=== PATIENT | female | born 1960 | race American Indian/Alaskan Native ===

== ENCOUNTER 2019-05-24 09:54 | Outpatient (CLI) | payer MEDICARE, BC ==
[2019-05-24 11:22] LABS: Blood Urea Nitrogen 8 mg/dL (7-17)
--- NOTE | 2019-05-24 12:51 | Cat Scan Report ---
CT CHEST WITHOUT CONTRAST INDICATION / CLINICAL INFORMATION: R07.89 STERNALPAIN SLIGHT LEFT OF MIDLINE. TECHNIQUE: Axial CT images were obtained through the chest without contrast. Sagittal and coronal reformatted im ages. All CT scans at this location are performed using CT dose reduction for ALARA by means of autom ated exposure control. COMPARISON: None available. FINDINGS: HEART: No significant abnormality. THORACIC AORTA: No significant abnormality. MEDIASTINUM and YAMILETH: No significant abnormality. LUNGS: No acute air space or interstitial disease. PLEURA: No significant pleural effusion. No pneumothorax. SKELETAL SYSTEM: No significant abnormality. UPPER ABDOMEN: No significant abnormality. ADDITIONAL FINDINGS: None. IMPRESSION: Unremarkable CT chest with contrast. No clear explanation for left parasternal pain. Signer Name: Ashok Starkey Jr, MD Signed: 05/24/2019 12:47 PM Workstation Name: [id number]
== END 2019-05-24 09:55 | disposition home or self-care (01) ==
LOC: CT 09:54
PROVIDERS: ATTEND Internal Medicine
DX: R07.89 Other chest pain (principal)
CPT/HCPCS: 36415; 71260; 82565; 84520; Q9967